=== PATIENT | female | born 1940 | race Caucasian/White ===

== ENCOUNTER 2016-08-13 12:10 | Outpatient (RCR) | payer OTHER | END 2016-08-17 | disposition home or self-care (01) | LOC: PTY 12:10 | DX: M15.0 Primary generalized (osteo)arthritis (principal); I10 Essential (primary) hypertension; M85.80 Other specified disorders of bone density and structure, unspecified site ==

== ENCOUNTER 2016-08-27 11:05 | Outpatient (RCR) | payer OTHER | END 2016-09-17 | disposition home or self-care (01) | LOC: PTY 11:05 | DX: M15.0 Primary generalized (osteo)arthritis (principal); I10 Essential (primary) hypertension; M85.80 Other specified disorders of bone density and structure, unspecified site ==

== ENCOUNTER 2016-10-15 11:10 | Outpatient (RCR) | payer OTHER | END 2016-10-17 | disposition home or self-care (01) | LOC: PTY 11:10 | DX: M15.0 Primary generalized (osteo)arthritis (principal) ==

== ENCOUNTER 2016-10-29 11:15 | Outpatient (RCR) | payer OTHER | END 2016-11-17 | disposition home or self-care (01) | LOC: PTY 11:15 | DX: M15.0 Primary generalized (osteo)arthritis (principal) ==

== ENCOUNTER 2016-12-10 11:00 | Outpatient (RCR) | payer OTHER | END 2016-12-18 | disposition home or self-care (01) | LOC: PTY 11:00 | DX: M15.0 Primary generalized (osteo)arthritis (principal) ==

== ENCOUNTER 2017-01-07 11:15 | Outpatient (RCR) | payer OTHER | END 2017-01-17 | disposition home or self-care (01) | LOC: PTY 11:15 | DX: M17.0 Bilateral primary osteoarthritis of knee (principal) ==

== ENCOUNTER 2017-02-16 13:10 | Outpatient (RCR) | payer OTHER | END 2017-02-17 | disposition home or self-care (01) | LOC: PTY 13:10 | DX: M15.0 Primary generalized (osteo)arthritis (principal) ==

== ENCOUNTER 2017-03-16 13:12 | Outpatient (RCR) | payer OTHER | END 2017-03-19 | disposition home or self-care (01) | LOC: PTY 13:12 | DX: M15.0 Primary generalized (osteo)arthritis (principal) ==